=== PATIENT | male | born 1970 | race Caucasian/White ===

== ENCOUNTER 2018-11-07 15:00 | Emergency (ER) | payer OTHER ==
--- NOTE | 2018-11-07 18:00 | RAD REPORT ---
EXAM DESCRIPTION: RAD - Foot Left 3 View - 11/07/2018 5:37 pm CLINICAL HISTORY: Foot wound, soft tissue injury COMPARISON: None. FINDINGS: No fracture, dislocation or periosteal reaction. No acute or destructive bony process. Th e first and second toes have been resected. There are postsurgical remodeling changes to the head of the first and second metatarsal bones. Degenerative changes and remodeling changes are seen in the th ird- fifth toes. Degenerative changes are present at the third MTP joint. Active destructive process is not suspected. No air or foreign body in the soft tissues. Moderate plantar spur is present. IMPRESSION: No acute bone process identifiable. Soft tissue edema changes with no air or foreign body.
[2018-11-07 18:19] LABS: Absolute Lymphocytes (CBC) 2.4 K/uL (0.7-4.9); Absolute Monocytes 0.9 K/uL (0.1-1.3); Basophils % 0.8 % (0-1.3); Eosinophils % 1.8 % (0-4.4); Hematocrit 44.5 % (39.6-49.0); Lymphocytes % 22.6 % (15.3-44.8); MPV 7.8 fL (7.6-11.3); Monocytes % 8.9 % (3.3-12.3)
[2018-11-07 18:36] LABS: Potassium 4.9 mmol/L (3.5-5.1)
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
[2018-11-07] MEDS ORDERED: HYDROCODONE/APAP 5/325 MG TAB ONE (19:48)
[2018-11-07] MEDS ORDERED: SMZ./TMP. 800/160 MG TABLET ONE (19:49)
[2018-11-07] MEDS ORDERED: CLINDAMYCIN 900MG/D5W 900 MG/50 ML IVPB IV ONE (19:49)
[2018-11-07] MEDS ORDERED: SILVER SULFADIAZINE 1% 25 GM TOP ONE (20:28)
[2018-11-07 20:47] VITALS: TEMP 98.4
[2018-11-07 20:50] VITALS: BP 121/74; O2SAT 96
== END 2018-11-07 20:38 | disposition home or self-care (01) ==
LOC: ER 15:00
DX: L03.032 Cellulitis of left toe (principal); L03.116 Cellulitis of left lower limb; X11.8XXA Contact with other hot tap-water, initial encounter; Y93.89 Activity, other specified; Y92.009 Unspecified place in unspecified non-institutional (private) residence as the place of occurrence of the external cause; Z79.4 Long term (current) use of insulin; Z85.6 Personal history of leukemia; Z88.5 Allergy status to narcotic agent; Z91.018 Allergy to other foods; E11.9 Type 2 diabetes mellitus without complications; I10 Essential (primary) hypertension
CPT/HCPCS: 36415; 80048; 85025; 96374; 99284

== ENCOUNTER 2018-11-18 18:47 | Emergency (ER) | payer OTHER ==
[2018-11-18 20:45] LABS: Absolute Lymphocytes (CBC) 2.2 K/uL (0.7-4.9); Absolute Monocytes 0.6 K/uL (0.1-1.3); Absolute Neutrophil 5.3 K/uL (1.8-8.0); Basophils % 1.2 % (0-1.3); Eosinophils % 2.6 % (0-4.4); Hematocrit 40.3 % (39.6-49.0); Lymphocytes % 26.1 % (15.3-44.8); MPV 7.2 fL (7.6-11.3); RBC Red Blood Cell Count 4.36 M/uL (4.33-5.43)
--- NOTE | 2018-11-18 22:07 | EDPHYS ---
Physician Documentation [facility] Name: Rios Etienne Age: 48 yrs Sex: Male : 1970 Arrival Date: 11/18/2018 Time: 18:50 Bed 15 Private MD: ED Physician Xu Gann HPI: 11/19 06:09 This 48 yrs old Male presents to ER via Ambulatory with complaints of Blood tw4 Pressure Problem, Blurred Vision. 06:09 The patient has elevated blood pressure and discovered this at home. The patient has tw4 elevated blood pressure and discovered this at home, with a home device. Onset: The symptoms/episode began/occurred today. Modifying factors: The symptoms are aggravated by. Severity of symptoms: At its worst the blood pressure was mild. 06:09 Associated signs and symptoms: Pertinent positives: visual changes. tw4 Historical: - Allergies: 11/18 19:07 Demerol; jb4 19:07 Morphine; jb4 19:07 Strawberries; jb4 19:07 IV constrast Per PCP; jb4 - Home Meds: 19:07 Fish Oil Oral [Active]; Glipizide Oral [Active]; Humalog Sub-Q [Active]; Levemir jb4 subcutaneous [Active]; Metoprolol Tartrate Oral [Active]; Simvastatin Oral [Active]; Spironolactone Oral [Active]; lisinopril Oral [Active]; Clindamycin Oral [Active]; Bactrim DS Oral [Active]; - PMHx: 19:07 ALL; Diabetes - IDDM; Hypertension; Leukemia; Hepatitis; Hyperlipidemia; jb4 - PSHx: 19:07 shoulder; below the knee amputation right leg; back; jb4 - Immunization history:: Adult Immunizations up to date. - Social history:: Smoking status: Patient/guardian denies using tobacco, Patient/guardian denies using alcohol. - Ebola Screening: : No symptoms or risks identified at this time. ROS: 11/19 06:09 Constitutional: Negative for fever, chills, and weight loss. tw4 Cardiovascular: Negative for chest pain, palpitations, and edema, Respiratory: Negative for shortness of breath, cough, wheezing, and pleuritic chest pain, Abdomen/GI: Negative for abdominal pain, nausea, vomiting, diarrhea, and constipation, Back: Negative for injury and pain, Neuro: Negative for headache, weakness, numbness, tingling, and seizure. Eyes: Positive for blurry vision, Negative for blurry vision, discharge, injury or acute deformity, itching, matting, swelling, tearing. Exam: 06:09 Constitutional: This is a well developed, well nourished patient who is awake, alert, tw4 and in no acute distress. Head/Face: Normocephalic, atraumatic. Chest/axilla: Normal chest wall appearance and motion. Nontender with no deformity. No lesions are appreciated. Cardiovascular: Regular rate and rhythm with a normal S1 and S2. No gallops, murmurs, or rubs. Normal PMI, no JVD. No pulse deficits. Respiratory: Lungs have equal breath sounds bilaterally, clear to auscultation and percussion. No rales, rhonchi or wheezes noted. No increased work of breathing, no retractions or nasal flaring. Abdomen/GI: Soft, non-tender, with normal bowel sounds. No distension or tympany. No guarding or rebound. No evidence of tenderness throughout. Back: No spinal tenderness. No costovertebral tenderness. Full range of motion. MS/ Extremity: Pulses equal, no cyanosis. Neurovascular intact. Full, normal range of motion. Neuro: Awake and alert, GCS 15, oriented to person, place, time, and situation. Cranial nerves II-XII grossly intact. Motor strength 5/5 in all extremities. Sensory grossly intact. Cerebellar exam normal. Normal gait. Vital Signs: 11/18 19:07 BP 123 / 77; Pulse 87; Resp 16; Temp 98.6(O); Pulse Ox 98% on R/A; Weight 122.47 kg jb4 (R); Height 6 ft. 3 in. (190.50 cm) (R); Pain 0/10; 20:00 BP 121 / 72; Pulse 82; Resp 16; Pulse Ox 98% on R/A; jb4 21:00 BP 114 / 74; Pulse 80; Resp 16; Pulse Ox 98% on R/A; jb4 22:30 BP 142 / 77; Pulse 80; Resp 16; Temp 98.6(O); Pulse Ox 99% on R/A; jb4 19:07 Body Mass Index 33.75 (122.47 kg, 190.50 cm) jb4 MDM: 19:18 Patient medically screened. tw4 11/19 06:09 Differential diagnosis: hypertensive crisis, Malignant HTN. Data reviewed: vital signs, tw4 nurses notes, EMS record. Data interpreted: Pulse oximetry: Interpretation: normal. Counseling: I had a detailed discussion with the patient and/or guardian regarding: the historical points, exam findings, and any diagnostic results supporting the discharge/admit diagnosis. Special discussion: I discussed with the patient/guardian in detail that at this point there is no indication for admission to the hospital. It is understood, however, that if the symptoms persist or worsen the patient needs to return immediately for re-evaluation. 11/18 20:09 Order name: CBC with Diff; Complete Time: 21:59 tw4 11/18 21:59 Interpretation: Normal except: WBC 8.5; PLT 366; MPV 7.2. tw4 Administered Medications: No medications were administered Point of Care Testing: Blood Glucose: 11/18 22:17 Blood Glucose: 206 mg/dL; jb4 Ranges: Critical Glucose Levels:Adult <50 mg/dl or >400 mg/dl <40 mg/dl or >180 mg/dl Disposition: 11/18/18 22:06 Discharged to Home. Impression: Hyperglycemia, unspecified. - Condition is Stable. - Discharge Instructions: Hyperglycemia, Blood Glucose Monitoring, Adult. - Medication Reconciliation Form, Thank You Letter, Antibiotic Education, Prescription Opioid Use form. - Follow up: Private Physician; When: Upon discharge from the Emergency Department; Reason: If symptoms return, Recheck today's complaints, Continuance of care. - Problem is new. - Symptoms have improved. Signatures: Dispatcher [employer] Aakash Burrell, RN RN jb4 Xu Gann MD MD tw4 Corrections: (The following items were deleted from the chart) 22:34 22:06 11/18/2018 22:06 Discharged to Home. Impression: Hyperglycemia, unspecified. jb4 Condition is Stable. Forms are Medication Reconciliation Form, Thank You Letter, Antibiotic Education, Prescription Opioid Use. Follow up: Private Physician; When: Upon discharge from the Emergency Department; Reason: If symptoms return, Recheck today's complaints, Continuance of care. Problem is new. Symptoms have improved. tw4 05/20 06:09 06:09 Associated signs and symptoms: The patient has no apparent associated signs or tw4 symptoms, tw4
--- NOTE | 2018-11-18 22:07 | ER ---
Nurse's Notes [facility] Name: Rios Etienne Age: 48 yrs Sex: Male : 1970 Arrival Date: 11/18/2018 Time: 18:50 Bed 15 Private MD: Diagnosis: Hyperglycemia, unspecified Presentation: 11/18 19:07 Presenting complaint: Patient states: I started having blurry vision 10 days ago. I jb4 have an appointment with my brisket puller tomorrow for a blood clot in my left eye. I came it today because my blood pressure was 100/50 at home and I was light headed and dizzy. I still have blurry vision in my left eye that causes me to feel anxious and nauseous. 19:07 Transition of care: patient was not received from another setting of care. Onset of jb4 symptoms was November 18, 2018. Risk Assessment: Do you want to hurt yourself or someone else? Patient reports no desire to harm self or others. Initial Sepsis Screen: Does the patient meet any 2 criteria? No. Patient's initial sepsis screen is negative. Does the patient have a suspected source of infection? No. Patient's initial sepsis screen is negative. Care prior to arrival: None. 19:07 Method Of Arrival: Ambulatory jb4 19:07 Acuity: MANJIT 3 jb4 Historical: - Allergies: 19:07 Demerol; jb4 19:07 Morphine; jb4 19:07 Strawberries; jb4 19:07 IV constrast Per PCP; jb4 - Home Meds: 19:07 Fish Oil Oral [Active]; Glipizide Oral [Active]; Humalog Sub-Q [Active]; Levemir jb4 subcutaneous [Active]; Metoprolol Tartrate Oral [Active]; Simvastatin Oral [Active]; Spironolactone Oral [Active]; lisinopril Oral [Active]; Clindamycin Oral [Active]; Bactrim DS Oral [Active]; - PMHx: 19:07 ALL; Diabetes - IDDM; Hypertension; Leukemia; Hepatitis; Hyperlipidemia; jb4 - PSHx: 19:07 shoulder; below the knee amputation right leg; back; jb4 - Immunization history:: Adult Immunizations up to date. - Social history:: Smoking status: Patient/guardian denies using tobacco, Patient/guardian denies using alcohol. - Ebola Screening: : No symptoms or risks identified at this time. Screenin:07 Abuse screen: Denies threats or abuse. Nutritional screening: No deficits noted. jb4 Tuberculosis screening: No symptoms or risk factors identified. Fall Risk None identified. Assessment: 19:07 General: Appears in no apparent distress. uncomfortable, Behavior is calm, cooperative, jb4 appropriate for age. Pain: Denies pain. Neuro: Level of Consciousness is awake, alert, obeys commands, Oriented to person, place, time, situation, Moves all extremities. Full function Reports blurred vision in left eye dizziness. Cardiovascular: Patient's skin is warm and dry. Respiratory: Airway is patent Respiratory effort is even, unlabored, Respiratory pattern is regular, symmetrical. GI: Reports nausea. : No signs and/or symptoms were reported regarding the genitourinary system. EENT: No signs and/or symptoms were reported regarding the EENT system. Derm: Skin is intact, Skin is pink, warm \T\ dry. Musculoskeletal: Amputation of right leg. Circulation, motion, and sensation intact. 20:00 Reassessment: Patient appears in no apparent distress at this time. Patient and/or jb4 family updated on plan of care and expected duration. Pain level reassessed. Patient is alert, oriented x 3, equal unlabored respirations, skin warm/dry/pink. 21:00 Reassessment: Patient appears in no apparent distress at this time. Patient and/or jb4 family updated on plan of care and expected duration. Pain level reassessed. Patient is alert, oriented x 3, equal unlabored respirations, skin warm/dry/pink. 22:34 Reassessment: Patient appears in no apparent distress at this time. Patient and/or jb4 family updated on plan of care and expected duration. Pain level reassessed. Patient is alert, oriented x 3, equal unlabored respirations, skin warm/dry/pink. Pt left ED ambulatory with steady gate. With family. Verbalized understanding of d/c and follow instructions. Vital Signs: 19:07 BP 123 / 77; Pulse 87; Resp 16; Temp 98.6(O); Pulse Ox 98% on R/A; Weight 122.47 kg jb4 (R); Height 6 ft. 3 in. (190.50 cm) (R); Pain 0/10; 20:00 BP 121 / 72; Pulse 82; Resp 16; Pulse Ox 98% on R/A; jb4 21:00 BP 114 / 74; Pulse 80; Resp 16; Pulse Ox 98% on R/A; jb4 22:30 BP 142 / 77; Pulse 80; Resp 16; Temp 98.6(O); Pulse Ox 99% on R/A; jb4 19:07 Body Mass Index 33.75 (122.47 kg, 190.50 cm) jb4 ED Course: 18:50 Patient arrived in ED. tw3 19:07 Arm band placed on left wrist. jb4 19:07 Patient has correct armband on for positive identification. Placed in gown. Bed in low jb4 position. Call light in reach. Side rails up X 1. Pulse ox on. NIBP on. 19:18 Xu Gann MD is Attending Physician. tw4 19:21 Aakash Faye RN is Primary Nurse. jb4 19:24 Triage completed. jb4 20:14 Initial lab(s) drawn, by ga, sent to lab. Inserted saline lock: 20 gauge in left jb4 antecubital area, using aseptic technique. Blood collected. 20:29 CBC with Diff Sent. jb4 22:30 No provider procedures requiring assistance completed. Patient did not have IV access jb4 during this emergency room visit. Administered Medications: No medications were administered Point of Care Testing: Blood Glucose: 22:17 Blood Glucose: 206 mg/dL; jb4 Ranges: Outcome: 22:06 Discharge ordered by . tw4 22:30 Discharged to home ambulatory, with family. jb4 22:30 Condition: stable 22:30 Discharge instructions given to patient, family, Instructed on discharge instructions, follow up and referral plans. medication usage, Demonstrated understanding of instructions, follow-up care, medications. 22:34 Patient left the ED. jb4 Signatures: Aakash Faye, WILFREDO RN delma4 Tete Musa tw3 Xu Gann MD MD tw4
[2018-11-18 23:28] VITALS: TEMP 98.6
[2018-11-18 23:32] VITALS: BP 142/77; O2SAT 99
== END 2018-11-18 22:34 | disposition home or self-care (01) ==
LOC: ER 18:47
DX: E11.65 Type 2 diabetes mellitus with hyperglycemia (principal); I10 Essential (primary) hypertension; Z79.4 Long term (current) use of insulin; Z88.5 Allergy status to narcotic agent; Z91.018 Allergy to other foods; Z91.041 Radiographic dye allergy status
CPT/HCPCS: 36415; 82962; 85025; 99284

== ENCOUNTER 2018-11-27 10:20 | Emergency (ER) | payer OTHER ==
--- NOTE | 2018-11-27 11:14 | RAD REPORT ---
EXAM DESCRIPTION: US - Extremity Venous Uni Ltd - 11/27/2018 11:09 am CLINICAL HISTORY: SWELLING Leg swelling and edema. COMPARISON: Extremity Venous Uni Ltd dated 10/26/2016 FINDINGS: Left lower extremity venous system was interrogated with Doppler technique. Normal flow, c ompressibility and augmentation was noted. There is no DVT present. IMPRESSION: No evidence of left lower extremity deep venous thrombosis.
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
[2018-11-27 11:51] VITALS: BP 181/93; TEMP 97.9; O2SAT 96
== END 2018-11-27 11:46 | disposition home or self-care (01) ==
LOC: ER 10:20
DX: R60.0 Localized edema (principal); E11.9 Type 2 diabetes mellitus without complications; E78.5 Hyperlipidemia, unspecified; I10 Essential (primary) hypertension; C95.90 Leukemia, unspecified not having achieved remission; Z88.5 Allergy status to narcotic agent; Z91.041 Radiographic dye allergy status; Z79.4 Long term (current) use of insulin
CPT/HCPCS: 93971; 99283

== ENCOUNTER 2018-12-24 09:21 | Emergency (ER) | payer OTHER ==
--- NOTE | 2018-12-24 09:56 | EDPHYS ---
Physician Documentation [facility] Name: Rios Etienne Age: 48 yrs Sex: Male : 1970 Arrival Date: 12/24/2018 Time: 09:25 Bed 7 Private MD: ED Physician David Paniagua HPI: 12/24 09:50 This 48 yrs old Male presents to ER via Wheelchair with complaints of High rn Blood Pressure. 09:50 The patient has elevated blood pressure and discovered this at hospital. Onset: The rn symptoms/episode began/occurred today. Modifying factors: The symptoms are aggravated by discontinuation of meds. Severity of symptoms: At its worst the blood pressure was moderate, in the emergency department the blood pressure is unchanged. The patient has experienced similar episodes in the past. Reports has been taking blood pressure log, hasn't needed to take BP meds for 3 months, his co pilot Dr. Panda knows this and is managing this, today went to wound healing, BP was high, sent here for further eval. Patient denies any symptoms, states under a lot of stress and simply hasn't taken his meds. Has 9 kids at home. Reports spoke with Dr. Panda just now who told him to just restart his meds if continues to run high and gave him a f/u appt. Denies chest pain/sob/abd pain/focal neurological complaint. Reports doesn't even have headache which he normally does when BP goes high.. Historical: - Allergies: 09:29 Demerol; hj 09:29 IV constrast Per PCP; hj 09:29 Morphine; hj 09:29 Strawberries; hj - PMHx: 09:29 Diabetes - IDDM; Hepatitis; Hyperlipidemia; Hypertension; Leukemia; (ALL); hj - PSHx: 09:29 shoulder; below the knee amputation right leg; back; hj - Immunization history:: Adult Immunizations up to date. - Social history:: Smoking status: Patient/guardian denies using tobacco. - Ebola Screening: : Patient denies exposure to infectious person Patient denies travel to an Ebola-affected area in the 21 days before illness onset. - Family history:: not pertinent. - Hospitalizations: : No recent hospitalization is reported. ROS: 09:50 Constitutional: Negative for fever, chills, and weight loss, Eyes: Negative for injury, rn pain, redness, and discharge, Neck: Negative for injury, pain, and swelling, Cardiovascular: Negative for chest pain, palpitations, and edema, Respiratory: Negative for shortness of breath, cough, wheezing, and pleuritic chest pain, Abdomen/GI: Negative for abdominal pain, nausea, vomiting, diarrhea, and constipation, Back: Negative for injury and pain, MS/Extremity: Negative for injury and deformity, Skin: Negative for injury, rash, and discoloration, Neuro: Negative for headache, weakness, numbness, tingling, and seizure. Exam: 09:50 Constitutional: This is a well developed, well nourished patient who is awake, alert, rn and in no acute distress. Head/Face: Normocephalic, atraumatic. Eyes: Pupils equal round and reactive to light, extra-ocular motions intact. Lids and lashes normal. Conjunctiva and sclera are non-icteric and not injected. No periorbital swelling. + left lateral subconjunctival hemorrhage. Cardiovascular: Regular rate and rhythm with a normal S1 and S2. No gallops, murmurs, or rubs. No pulse deficits. Respiratory: Lungs have equal breath sounds bilaterally, clear to auscultation. No increased work of breathing, no retractions or nasal flaring. Abdomen/GI: soft, non-tender MS/ Extremity: No cyanosis, + right leg prosthesis. Neuro: Awake and alert, GCS 15, oriented to person, place, time, and situation. Cranial nerves II-XII grossly intact. Motor strength 5/5 in all extremities. Sensory grossly intact. Cerebellar exam normal. Normal gait. Vital Signs: 09:29 Pulse 83; Resp 16; Pulse Ox 99% on R/A; Weight 124.74 kg; Height 6 ft. 3 in. (190.50 hj cm); Pain 0/10; 09:32 BP 220 / 109; hj 09:29 Body Mass Index 34.37 (124.74 kg, 190.50 cm) hj MDM: 09:32 Patient medically screened. rn 09:50 Differential diagnosis: hypertensive crisis, Malignant HTN, asymptomatic HTN. Data rn reviewed: vital signs, nurses notes, and as a result, I will discharge patient. Counseling: I had a detailed discussion with the patient and/or guardian regarding: the historical points, exam findings, and any diagnostic results supporting the discharge/admit diagnosis, the need for outpatient follow up, to return to the emergency department if symptoms worsen or persist or if there are any questions or concerns that arise at home. Refusal of service: The patient/guardian displays adequate decision making capability and despite a detailed discussion of alternatives, benefits, risks, and consequences refuses: all lab tests, Medications. Special discussion: I discussed with the patient/guardian in detail that at this point there is no indication for admission to the hospital. It is understood, however, that if the symptoms persist or worsen the patient needs to return immediately for re-evaluation. Based on the history and exam findings, there is no indication for further emergent testing or inpatient evaluation. I discussed with the patient/guardian the need to see the co pilot for further evaluation of the symptoms. I discussed with the patient/guardian the need to see the primary care provider for further evaluation of the symptoms. ED course: Patient declines any treatment, states just spoke with Sergio Panda, has his meds at home, and wants to go home. Normal neuro exam. Return precautions given and understood. 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 Administered Medications: No medications were administered Disposition: 12/24/18 09:55 Discharged to Home. Impression: Asymptomatic Hypertension. - Condition is Stable. - Discharge Instructions: Hypertension, Managing Your Hypertension. - Medication Reconciliation Form, Thank You Letter, Antibiotic Education, Prescription Opioid Use form. - Follow up: Jose Panda MD; When: As needed; Reason: Recheck today's complaints, Re-evaluation by your physician. - Problem is new. - Symptoms have improved. Signatures: David Paniagua MD MD rn Joaquin, Henry, RN RN hj Baxter, Heather, RN RN hb Corrections: (The following items were deleted from the chart) 09:59 09:55 12/24/2018 09:55 Discharged to Home. Impression: Asymptomatic Hypertension. hb Condition is Stable. Forms are Medication Reconciliation Form, Thank You Letter, Antibiotic Education, Prescription Opioid Use. Follow up: Jose Panda; When: As needed; Reason: Recheck today's complaints, Re-evaluation by your physician. Problem is new. Symptoms have improved. rn
--- NOTE | 2018-12-24 09:56 | ER ---
Nurse's Notes [facility] Name: Rios Etienne Age: 48 yrs Sex: Male : 1970 Arrival Date: 12/24/2018 Time: 09:25 Bed 7 Private MD: Diagnosis: Asymptomatic Hypertension Presentation: 12/24 09:26 Presenting complaint: Patient states: from wound healing center, BP was taken several hj times and was read as follows: 8:15 am- 214/119; 216/109; 214/119; 239/120; denies N/V; denies chest pain;. Transition of care: patient was not received from another setting of care. Onset of symptoms was December 24, 2018. Risk Assessment: Do you want to hurt yourself or someone else? Patient reports no desire to harm self or others. Initial Sepsis Screen: Does the patient meet any 2 criteria? No. Patient's initial sepsis screen is negative. Does the patient have a suspected source of infection? No. Patient's initial sepsis screen is negative. Care prior to arrival: None. 09:26 Method Of Arrival: Wheelchair 09:26 Acuity: MANJIT 2 hj Historical: - Allergies: 09:29 Demerol; hj 09:29 IV constrast Per PCP; hj 09:29 Morphine; hj 09:29 Strawberries; hj - PMHx: 09:29 Diabetes - IDDM; Hepatitis; Hyperlipidemia; Hypertension; Leukemia; (ALL); hj - PSHx: 09:29 shoulder; below the knee amputation right leg; back; hj - Immunization history:: Adult Immunizations up to date. - Social history:: Smoking status: Patient/guardian denies using tobacco. - Ebola Screening: : Patient denies exposure to infectious person Patient denies travel to an Ebola-affected area in the 21 days before illness onset. - Family history:: not pertinent. - Hospitalizations: : No recent hospitalization is reported. Screenin:45 Abuse screen: Denies threats or abuse. Denies injuries from another. Nutritional hb screening: No deficits noted. Tuberculosis screening: No symptoms or risk factors identified. Fall Risk None identified. Assessment: 09:45 General: Appears in no apparent distress. Behavior is calm, cooperative. Pain: Denies hb pain. Neuro: Level of Consciousness is awake, alert, obeys commands, Oriented to person, place, time, situation. Cardiovascular: Capillary refill < 3 seconds Patient's skin is warm and dry. Respiratory: Airway is patent Respiratory effort is even, unlabored, Respiratory pattern is regular, symmetrical. GI: No signs and/or symptoms were reported involving the gastrointestinal system. : No signs and/or symptoms were reported regarding the genitourinary system. EENT: No signs and/or symptoms were reported regarding the EENT system. Derm: Skin is intact, is healthy with good turgor. Musculoskeletal: No signs and/or symptoms reported regarding the musculoskeletal system. Vital Signs: 09:29 Pulse 83; Resp 16; Pulse Ox 99% on R/A; Weight 124.74 kg; Height 6 ft. 3 in. (190.50 cm); Pain 0/10; 09:32 BP 220 / 109; hj 09:29 Body Mass Index 34.37 (124.74 kg, 190.50 cm) ED Course: 09:25 Patient arrived in ED. mr 09:27 Triage completed. hj 09:29 Arm band placed on left wrist. 09:32 David Paniagua MD is Attending Physician. rn 09:32 Patient has correct armband on for positive identification. Bed in low position. Call hb light in reach. Side rails up X 1. 09:54 Jose Panda MD is Referral Physician. rn 09:59 No provider procedures requiring assistance completed. Patient did not have IV access hb during this emergency room visit. Administered Medications: No medications were administered Outcome: 09:55 Discharge ordered by MD. rn 09:59 Discharged to home ambulatory. hb 09:59 Condition: stable 09:59 Discharge instructions given to patient, Instructed on discharge instructions, follow up and referral plans. Demonstrated understanding of instructions, follow-up care. 09:59 Patient left the ED. hb Signatures: Toni Zenobia augustin David Paniagua MD MD rn Joaquin, Henry, RN RN hj Baxter, Heather, RN RN hb Corrections: (The following items were deleted from the chart) :32 09:26 Acuity: MANJIT 3 [facility]
[2018-12-24 10:06] VITALS: O2SAT 99
[2018-12-24 10:08] VITALS: BP 220/109
== END 2018-12-24 09:59 | disposition home or self-care (01) ==
LOC: ER 09:21
DX: I10 Essential (primary) hypertension (principal); Z88.5 Allergy status to narcotic agent; Z85.72 Personal history of non-Hodgkin lymphomas; Z91.018 Allergy to other foods; Z91.041 Radiographic dye allergy status
CPT/HCPCS: 99281